=== PATIENT | male | born 1975 | race Caucasian/White ===

== ENCOUNTER 2016-10-13 15:23 | Outpatient (CLI) | payer OTHER ==
--- NOTE | 2016-10-13 16:13 | Diagnostic Imaging Report ---
Thoracic spine 2 limited views Indication: pain Comparison: Lumbar spine x-ray the same day and CT angiogram chest on 02/24/2015 Findings: There is poor visualization of the cervical cervicothoracic junction as swimmer's views were not obtained. Moderate to advanced joint discogenic degenerative changes are seen with multilevel marginal osteophytic spurring. No evidence of an acute compression fracture or subluxation. Impression: Limited exam demonstrating moderate to advanced utilized discogenic degenerative changes.
--- NOTE | 2016-10-13 16:14 | Diagnostic Imaging Report ---
Lumbar spine 3 views Indication: pain Comparison: Thoracic spine x-ray the same day Findings: There is probable chronic mild compression fracture of L5 with elongation of the vertebral body. No acute compression fracture or subluxation. Advanced multilevel degenerative changes are seen with moderate to advanced multilevel disc space loss of height. Advanced facet degenerative changes are noted. 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 The SI joints demonstrate degenerative changes. Impression: Probable mild chronic compression fracture of L5 with elongation of the vertebral body anteriorly. No acute compression fracture or subluxation. 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 Consider further assessment with MRI examination.
== END 2016-10-13 15:33 | disposition home or self-care (01) ==
LOC: RAD 15:23
PROVIDERS: ATTEND General Practice
DX: M54.5 Low back pain (principal)
CPT/HCPCS: 72072-TC; 72100-TC

== ENCOUNTER 2016-10-18 10:56 | Outpatient (CLI) | payer OTHER ==
[2016-10-18 11:29] LABS: % BASOPHILS 0.4 % (0.0-2.0); % EOSINOPHILS 2.5 % (0.0-5.0); % MONOCYTES 7.7 % (2.0-10.0); % NEUTROPHILS 69.4 % (40.0-80.0); HEMATOCRIT 43.1 % (39.0-49.0); MEAN CELL VOLUME 81.9 fl (80-99); MEAN CORPUSCULAR HEMOGLOBIN 28.7 pg (26.0-30.0); MEAN PLATELET VOLUME 8.6 fl; NEUTROPHILE ABSOLUTE 6.9 Th/cmm (1.8-8.0); PLATELET COUNT 300 Th/cmm (150-400); RED BLOOD COUNT 5.26 Mil/cmm (4.30-5.70); RED CELL DISTRIBUTION WIDTH 13.8 % (11.5-20.0); WHITE BLOOD COUNT 9.9 Th/cmm (5.0-20)
[2016-10-18 11:39] LABS: HEMOGLOBIN 15.1 gm/dL (13.2-17.3)
[2016-10-18 11:43] LABS: URINE COLOR YELLOW
[2016-10-18 11:44] LABS: URINE BILIRUBIN NEGATIVE (NEGATIVE); URINE BLOOD TRACE (NEGATIVE); URINE GLUCOSE (UA) NEGATIVE (NEGATIVE); URINE KETONE NEGATIVE (NEGATIVE); URINE PROTEIN 100 mg/dL (NEGATIVE); URINE UROBILINOGEN 0.2 E.U./dL (0.2 - 1.0)
[2016-10-18 11:58] LABS: URINE BACTERIA NONE SEEN /hpf (NONE SEEN); URINE EPITHELIAL CELLS RARE /lpf (FEW); URINE WBC 0-2 /hpf (0-5)
[2016-10-18 12:02] LABS: ALB/GLOB RATIO 1.2 (1.0-1.8); ALKALINE PHOSPHATASE 62 U/L (34-104); ANION GAP 8.8 (7.0-16.0); BILIRUBIN,TOTAL 1.4 mg/dL (0.3-1.0); BUN - UREA NITROGEN 12 mg/dL (7-25); BUN/CREATININE RATIO 13.3; CALCIUM SERUM 9.6 mg/dL (8.6-10.3); CHLORIDE 104 mEq/L (98-107); CHOLESTEROL 162 mg/dL (<200); CREATININE - SERUM 0.9 mg/dL (0.7-1.3); GLUCOSE 94 mg/dL (70-105); POTASSIUM SERUM 3.8 mEq/L (3.5-5.1); SGOT 21 U/L (13-39); SGPT/ALT 24 U/L (7-52); SODIUM SERUM 138 mEq/L (136-145); TRIGLYCERIDES 186 mg/dL (<150)
[2016-10-22 02:14] LABS: T4 FREE 1.35 ng/dL (0.82-1.77)
== END 2016-10-18 11:20 | disposition home or self-care (01) ==
LOC: EEVIPCON 10:56 → LAB 10:56
PROVIDERS: ATTEND General Practice
DX: Z00.01 Encounter for general adult medical examination with abnormal findings (principal); E34.9 Endocrine disorder, unspecified
CPT/HCPCS: 36415-UA; 80053-TC; 80061-TC; 81001-TC; 82306-90; 84402-90; 84403-90; 84439-90; 84443-TC; 85025-TC